=== PATIENT | male | born 1985 | race Hispanic/Latino ===

== ENCOUNTER 2017-04-14 13:17 | Emergency (ER) | payer SELFPAY ==
[2017-04-14] MEDS ORDERED: TETANUS/DIPHTHERIA TOXOID [ADULT] 0.5 ML VIAL IM ONE (14:30)
[2017-04-14] MEDS ORDERED: IBUPROFEN 600 MG TABLET ONE (14:30)
== END 2017-04-14 14:44 | disposition home or self-care (01) ==
LOC: EDH 13:17
DX: S61.012A Laceration without foreign body of left thumb without damage to nail, initial encounter (principal); W26.0XXA Contact with knife, initial encounter; Y93.G3 Activity, cooking and baking; Y92.098 Other place in other non-institutional residence as the place of occurrence of the external cause; Y99.8 Other external cause status
CPT/HCPCS: 90471; 90714